=== PATIENT | female | born 1970 | race Caucasian/White ===

== ENCOUNTER → 2018-12-04 13:50 | Outpatient (CLI) | payer OTHER, SELFPAY ==
[2018-12-04 14:56] LABS: Add Manual Diff / Slide Review NO; Basophils Absolute Auto 100 /uL (0-100); Basophils Percent Auto 0.8 % (0-2); Eosinophils Absolute Auto 200 /uL (0-450); Eosinophils Percent Auto 2.8 % (2-4); Hematocrit 39.6 % (36-46); Hemoglobin 13.2 g/dL (12.0-16.0); Lymphocytes Absolute Auto 2300 /uL (1100-4500); Lymphocytes Percent Auto 32.9 % (25-40); Mean Corpuscular HGB Conc 33.4 % (30-36); Mean Corpuscular Hemoglobin 30.4 PG (26-34); Monocytes Absolute Auto 500 /uL (0-900); Monocytes Percent Auto 7.7 % (3-14); Neutrophils Absolute Auto 3900 /uL (1500-7000); Neutrophils Percent Auto 55.8 % (50-75); Platelet Count 389 X10^3/uL (150-400); Red Blood Cell Count 4.35 X10^6/uL (4.0-5.2); Red Cell Distribution Width 13.2 % (11.6-14.8)
[2018-12-04 15:46] LABS: Thyroid Stimulating Hormone 0.17 uIU/mL (0.47-4.68)
[2018-12-04 15:59] LABS: Cholesterol 228 mg/dL (140-199); HDL Cholesterol 43 mg/dL (40-60); LDL Cholesterol Calculated 127 mg/dL (<100); Triglycerides 288 mg/dL (35-150)
== END ==
PROVIDERS: PCP Student in an Organized Health Care Education/Training Program; Visit Provider Student in an Organized Health Care Education/Training Program
DX: E03.9 Hypothyroidism, unspecified (principal); Z13.220 Encounter for screening for lipoid disorders; G47.30 Sleep apnea, unspecified; R53.83 Other fatigue; E55.9 Vitamin D deficiency, unspecified
CPT/HCPCS: 36415; 80061; 82306; 84439; 84443; 84481; 85025

== ENCOUNTER → 2019-06-18 09:04 | Outpatient (CLI) | payer OTHER, SELFPAY ==
--- NOTE | 2019-06-18 09:05 | DI.ECHO.S_ITS ---
[facility] +---------+ : : [address] : : : : [id number] : : : : Phone: [phone]+ Echocardiogram Report + + :Name: CATHERINE OLIVIER Study Date: 06/18/2019 Height: 65 in : :[facility] Weight: 145 lb : : Gender: Female BSA: 1.7 m2 : :: 1970 Age: 48 yrs BP: 152/88 mmHg: :Reason For Study: Chest pain : : Performed By: Qi Yates : :Referring: SUJEY ROBERSON : + + Interpretation Summary Normal sinus rhythm. Normal LV size, wall thickness, wall motion and LV systolic function. EF is 60-65%. Normal chamber sizes. No significant valvular abnormalities. No prior echo available for comparison. Procedure: A two-dimensional transthoracic echocardiogram with color flow and Doppler was performed. The study quality was technically adequate. Comparison is made with the echocardiogram of 09-15-05. The patient was in normal sinus rhythm during the exam. Left Ventricle: The left ventricle is normal in size, wall thickness, and systolic function without any focal wall motion abnormalities. The ejection fraction is estimated to be 60-65%. Diastolic parameters suggest probable normal left ventricular diastolic function and normal filling pressures. Right Ventricle: The right ventricle grossly appears normal in size with probable normal systolic function. Atria: The left atrial size is normal. Right atrial size is normal. The interatrial septum is intact with no evidence for an atrial septal defect. Mitral Valve: The mitral valve is normal in structure and function. There is no mitral regurgitation noted. Aortic Valve: The aortic valve is trileaflet. The aortic valve opens well. No aortic regurgitation is present. Tricuspid Valve: The tricuspid valve is normal in structure and function. There is trace tricuspid regurgitation. The right ventricular systolic pressure is estimated to be at least 26 mmHg based on an estimated right atrial pressure of 3 mm Hg. Pulmonic Valve: The pulmonic valve is normal in structure and function. There is no pulmonic valvular regurgitation. Great Vessels: The aortic root is normal size. The dimensions of the ascending aorta are normal. The aortic arch is normal in size. The IVC is of normal diameter and collapses greater than 50% with a sniff. This suggests a low right atrial pressure of 3 mm Hg. Pericardium/ Pleura There is no pericardial effusion. There is no pleural effusion. MMode/2D Measurements & Calculations LVIDd: 3.7 cm Ao root diam: 3.4 cm LVIDs: 2.3 cm Aortic Jxn: 2.6 cm FS: 37.5 % asc Aorta Diam: 3.3 cm EPSS: 0.53 cm Ao Arch Diam (Prox Trans): 3.0 cm IVSd: 0.97 cm LVPWd: 0.90 cm LV rosenthal. diameter/BSA (cm/m^2): 2.2 LV sys. diameter/BSA (cm/m^2): 1.3 LA dimension: 3.1 cm RA long axis: 4.6 cm LA A2 area: 16.9 cm2 RA area: 15.0 cm2 LA A4 area: 18.6 cm2 RA vol: 41.5 ml LA length (vol): 5.2 cm RA : 24.0 ml/m2 LA vol: 51.5 ml IVC diam: 1.8 cm LA vol index: 29.9 ml/m2 RVDd major: 5.0 cm RVD1 (basal): 3.5 cm RVD2 (mid): 2.9 cm Doppler Measurements & Calculations Ao V2 max: 166.7 cm/sec MV E max patric: 78.5 cm/sec Ao V2 mean: 111.5 cm/sec MV A max patric: 65.3 cm/sec Ao max P.1 mmHg MV E/A: 1.2 Ao mean P.7 mmHg Med Peak E' Patric: 6.5 cm/sec Ao V2 VTI: 34.6 cm E/E' med: 12.2 Lat Peak E' Patric: 8.8 cm/sec E/E' lat: 8.9 E/e' average: 10.5 MV dec time: 0.27 sec MV P1/2t: 80.1 msec TR max patric: 240.7 cm/sec MV P1/2t max patric: 78.1 cm/sec TR max P.2 mmHg MVA(P1/2t): 2.7 cm2 PA V2 max: 88.3 cm/sec PA V2 mean: 56.1 cm/sec PA mean P.5 mmHg PA Accel Time: 0.15 sec Electronically signed by: Osiris Rowe M.D. on Reading Physician:06/19/2019 04:13 AM
== END ==
PROVIDERS: PCP Student in an Organized Health Care Education/Training Program; Visit Provider Student in an Organized Health Care Education/Training Program
DX: R07.9 Chest pain, unspecified (principal); G47.31 Primary central sleep apnea
CPT/HCPCS: 93306

== ENCOUNTER → 2021-07-16 14:33 | Outpatient (ROUT) | payer OTHER, SELFPAY ==
[2021-07-16 14:34] LABS: RBC Urine None Seen (0-5/HPF)
[2021-07-16 14:48] LABS: Appearance Urine UA CLEAR; Bilirubin Urine UA NEGATIVE (NEGATIVE); Color Urine UA YELLOW; Glucose Urine UA NEGATIVE (Negative); Ketones Urine UA TRACE (NEGATIVE); Leukocyte Esterase Urine UA NEGATIVE (NEGATIVE); Nitrite Urine UA NEGATIVE (Negative); Occult Blood Urine UA NEGATIVE (Negative); Protein Urine UA NEGATIVE (Negative); Specific Gravity Urine UA >=1.030 (1.000-1.035); Urobilinogen Urine UA 0.2 E.U./dL (0.2)
[2021-07-16 14:56] LABS: Amorphous Sediment Urine 1+; Bacteria Urine Moderate (10-30); Culture Indicated Urine Specimen Cultured; Mucus Urine 2+ (Negative); Squamous Epithelial Cell Urine 1-5 /HPF (0-5/HPF); WBC Urine 0-1/HPF (0-5/HPF)
== END ==
PROVIDERS: Visit Provider Specialist
DX: N39.0 Urinary tract infection, site not specified (principal)
CPT/HCPCS: 81001; 87086

== ENCOUNTER → 2021-08-26 11:28 | Outpatient (CLI) | payer OTHER, SELFPAY | PROVIDERS: PCP Family Medicine; Referring Provider Internal Medicine; Visit Provider Internal Medicine | DX: Z23 Encounter for immunization (principal) | CPT/HCPCS: 90471; 90686 ==

== ENCOUNTER → 2021-09-06 09:03 | Outpatient (CLI) | payer OTHER, SELFPAY ==
[2021-09-06 09:38] LABS: COVID19 -Nasal RAPID Negative (Negative)
== END ==
PROVIDERS: PCP Family Medicine; Visit Provider Surgery
DX: Z01.812 Encounter for preprocedural laboratory examination (principal); Z20.822 Contact with and (suspected) exposure to COVID-19
CPT/HCPCS: 87635

== ENCOUNTER → 2021-09-07 07:07 | Outpatient (CLI) | payer OTHER, SELFPAY ==
--- NOTE | 2021-09-07 07:08 | DI.CT.S_ITS ---
PROCEDURE: CT PELVIS W CON INDICATIONS: Deep buttock/pelvic pain. Cause unclear.Negative vaginal US TECHNIQUE: After the administration of oral contrast and intravenous contrast, 5 mm thick sections acquired from the iliac crests to the symphysis. 5 mm thick coronal and sagittal reformats were acquired. For radiation dose reduction, the following was used: automated exposure control, adjustment of mA and/or kV according to patient size. COMPARISON: [facility], US, US PELVIC COMPLETE, 07/20/2021, 13:58. [facility], CT, CT PELVIS WITH CONTRAST, 05/29/2019, 16:41. [facility], CT, CT ABD PANCREATIC PROTOCOL, 03/30/2017, 14:53. FINDINGS: Image quality: Excellent. Peritoneum and bowel: Contrast enhanced bowel loops demonstrate normal wall thickness and caliber. No free fluid or air. Genitourinary: There is fluid within the endometrial cavity, which appears somewhat irregular. Ovaries are not visualized. No pathological free-fluid in the cul-de-sac. Bladder wall thickness is normal. Nodes and vessels: No iliac, pelvic, or inguinal adenopathy. Iliac vessels demonstrate normal size and enhancement. Bones: No suspicious bony lesions. Miscellaneous: No inguinal hernias. IMPRESSION: 1. No acute inflammatory process is identified in pelvis. 2. No pelvic lymphadenopathy. 3. Fluid in the endometrial cavity, which appears slightly irregular. Please correlate with findings on gynecological ultrasound. Dictated by: Jammie Madrid M.D. on 09/07/2021 at 8:45 Approved by: Jammie Madrid M.D. on 09/07/2021 at 8:53
== END ==
PROVIDERS: PCP Family Medicine; Referring Provider Specialist; Visit Provider Specialist
DX: R10.2 Pelvic and perineal pain (principal)
CPT/HCPCS: 72193; Q9967

== ENCOUNTER → 2021-09-21 07:06 | Outpatient (CLI) | payer OTHER, SELFPAY ==
--- NOTE | 2021-09-21 07:07 | DI.US.S_ITS ---
PROCEDURE: US PELVIC COMPLETE INDICATIONS: Pelvic pain TECHNIQUE: Real-time scanning was performed of the pelvic organs, with image documentation. Additional endovaginal scanning was necessary due to incomplete visualization of the adnexal and endometrial structures by transabdominal scanning. COMPARISON: [facility], US, US PELVIC COMPLETE, 07/20/2021, 13:58. FINDINGS: Uterus: Surgically absent. Hypoechoic lesions are seen in the cervix, compatible with nabothian cysts. Ovaries: Not visualized. Other: No pathologic free abdominal or pelvic fluid. IMPRESSION: No significant abnormality. Dictated by: Juan Alberto Hull M.D. on 09/21/2021 at 8:49 Approved by: Juan Alberto Hull M.D. on 09/21/2021 at 8:51
== END ==
PROVIDERS: PCP Family Medicine; Referring Provider Obstetrics & Gynecology; Visit Provider Obstetrics & Gynecology
DX: R10.2 Pelvic and perineal pain (principal); N88.9 Noninflammatory disorder of cervix uteri, unspecified; Z90.710 Acquired absence of both cervix and uterus
CPT/HCPCS: 76830; 76856

== ENCOUNTER → 2021-10-08 15:34 | Outpatient (CLI) | payer OTHER, SELFPAY ==
[2021-10-08] MEDS: COVID-19 VACC #3, MRNA(MOD) 50 MCG/0.25 ML VIAL IM (15:42)
== END ==
PROVIDERS: PCP Family Medicine; Visit Provider Internal Medicine
DX: Z23 Encounter for immunization (principal)
CPT/HCPCS: 0013A; 91301

== ENCOUNTER → 2021-12-06 08:37 | Outpatient (CLI) | payer OTHER, SELFPAY ==
[2021-12-06 09:15] LABS: COVID19 -Nasal RAPID Negative (Negative)
== END ==
PROVIDERS: PCP Family Medicine; Referring Provider Surgery; Visit Provider Surgery
DX: Z20.822 Contact with and (suspected) exposure to COVID-19 (principal)
CPT/HCPCS: 87635

== ENCOUNTER → 2021-12-08 08:37 | Outpatient (CLI) | payer OTHER, SELFPAY ==
[2021-12-08 09:08] LABS: COVID19 -Nasal RAPID Negative (Negative)
== END ==
PROVIDERS: PCP Family Medicine; Referring Provider Surgery; Visit Provider Surgery
DX: Z01.812 Encounter for preprocedural laboratory examination (principal); Z20.822 Contact with and (suspected) exposure to COVID-19
CPT/HCPCS: 87635

== ENCOUNTER → 2022-01-17 12:29 | Outpatient (CLI) | payer OTHER, SELFPAY ==
[2022-01-17 15:32] LABS: COVID19 -Nasal RAPID Negative (Negative)
== END ==
PROVIDERS: PCP Family Medicine; Referring Provider Surgery; Visit Provider Surgery
DX: Z01.812 Encounter for preprocedural laboratory examination (principal); Z20.822 Contact with and (suspected) exposure to COVID-19
CPT/HCPCS: 87635

== ENCOUNTER → 2022-02-21 11:00 | Outpatient (CLI) | payer OTHER, SELFPAY ==
[2022-02-21 13:51] LABS: COVID19 -Nasal RAPID Negative (Negative)
== END ==
PROVIDERS: PCP Family Medicine; Visit Provider Surgery
DX: Z01.812 Encounter for preprocedural laboratory examination (principal); Z20.822 Contact with and (suspected) exposure to COVID-19
CPT/HCPCS: 87635

== ENCOUNTER → 2022-03-16 10:03 | Outpatient (CLI) | payer OTHER, SELFPAY ==
[2022-03-16 10:44] LABS: COVID19 -Nasal RAPID Negative (Negative)
== END ==
PROVIDERS: PCP Family Medicine; Visit Provider Surgery
DX: Z20.822 Contact with and (suspected) exposure to COVID-19 (principal)
CPT/HCPCS: 87635

== ENCOUNTER → 2022-03-30 08:40 | Outpatient (CLI) | payer OTHER, SELFPAY ==
[2022-03-30 09:08] LABS: COVID19 -Nasal RAPID Negative (Negative)
== END ==
PROVIDERS: PCP Family Medicine; Visit Provider Surgery
DX: Z20.822 Contact with and (suspected) exposure to COVID-19 (principal)
CPT/HCPCS: 87635

== ENCOUNTER → 2022-05-16 11:42 | Outpatient (CLI) | payer OTHER, SELFPAY ==
[2022-05-16 13:51] LABS: COVID19 -Nasal RAPID Negative (Negative)
== END ==
PROVIDERS: PCP Family Medicine; Visit Provider Surgery
DX: Z20.822 Contact with and (suspected) exposure to COVID-19 (principal); Z01.812 Encounter for preprocedural laboratory examination
CPT/HCPCS: 87635; C9803

== ENCOUNTER 2022-05-17 14:42 | Day surgery (SDC) | payer OTHER, SELFPAY ==
[2022-05-10 15:14] VITALS: BMI 27.8
--- NOTE | 2022-05-17 | PATH_ITS ---
[facility] Accession Number: [id number] . 01 Material submitted: . perianal area - RIGHT MADHAVI-ANAL SKIN . 01 Diagnosis: Right Perianal, Biopsy: Epithelial hyperplasia with hyperkeratosis and mild underlying fibrosis; see note. . Note: Additional step sections are examined. 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 A PAS fungal stain is negative for fungal hyphae. There is no evidence of malignancy identified in sections examined. Clinical correlation is suggested. V 05/24/2022 1603 Local . 01 Electronically signed: . Keon Elaine MD, Dermatopathologist NPI- [id number] . 01 Gross description: . RIGHT MADHAVI-ANAL SKIN: Received in formalin is 1 fragment of hawkins soft tissue measuring 0.3 x 0.3 x 0.5 cm. Tissue is inked. Specimen is submitted in its entirety in 1 cassette. /ARIEL 05/18/2022 2222 Local . 01 Pathologist provided ICD-10: L28.0 . 01 CPT . 143328, [id number] Specimen Comment: A courtesy copy of this report has been sent to [phone] Performed at: 01 [facility] [address] [place] [address] [address] [facility], [place], [place] [id number] MD Reinaldo Haskins MD Phone: [phone]
[2022-05-17 14:50] VITALS: BP 133/83; PULSE 82; RESP 16; TEMP 36.2; O2SAT 96
[2022-05-17 14:58] VITALS: BMI 27.8
[2022-05-17] MEDS: LACTATED RINGERS 1,000 ML 84 ML IV (15:14)
--- NOTE | 2022-05-17 15:59 | PM.PREOP ---
Pre-operative Note COVID-19 COVID-19 status: Negative Result date/Date tested (Pos, Neg/Pending): 05/16/22 Interval Note History & Physical reviewed/Exam performed by Physician: Yes Changes to H&P: No ASA Class (for procedural sedation): II
[2022-05-17] MEDS: CEFAZOLIN 2 GM/20 ML SYRINGE IV (16:18)
[2022-05-17] MEDS: BUPIVACAINE LIPOSOME 266 MG/20 ML VIAL INJ (16:42)
--- NOTE | 2022-05-17 16:43 | PM.OP.1 ---
Operative Date/Time/Diagnoses Date of procedure: 05/17/22 Time of procedure: 16:44 Pre-op diagnosis: Proctalgia Post-op diagnosis: same Procedure & Clinicians Procedure: Examination under anesthesia and biopsy of right perianal skin Same procedure as scheduled: Yes Surgeon: Salvador Escobar Anesthesia Type: General Operative Notes Procedure in detail: The patient was brought to the operating and placed on the table in supine position. General anesthesia was induced. Patient was positioned in lithotomy and the perineum was prepped and draped in the usual fashion. A time-out was performed. First, a digital rectal exam was performed with lubricant. The sphincter tone was noted to be rather high. Initially 1 digit was used and after relaxation of the sphincter muscle two well lubricated digits were able to be inserted. Next, the L Bright retractor was used to examine the distal rectum and perineum. There was a small posterior fissure which appeared to be healing. The slightly hypertrophied skin in the right lateral perianal location was examined. There was no obvious skin lesion but the skin was just slightly redundant hypertrophied. A number 3 punch biopsy was taken. A 4-0 Monocryl was used to close the skin and achieve hemostasis. Then a drop of Dermabond was applied over the wound. Patient was awakened brought to recovery room. EBL: 5 mL Specimen: Right perianal skin Post-operative Condition: stable Disposition: PACU
--- NOTE | 2022-05-17 16:44 | SUR.OPER ---
Lithotomy on padded OR bed, head on pillow, arms secured on padded arm boards at <90 degrees abduction. Legs secured in padded yellow fins stirrups.
[2022-05-17 16:47] VITALS: BP 95/65; PULSE 80; RESP 14; TEMP 36.4; O2SAT 98
[2022-05-17 16:52] VITALS: BP 104/60; PULSE 73; RESP 16; O2SAT 95
[2022-05-17 16:57] VITALS: BP 110/66; PULSE 81; RESP 18; O2SAT 94
[2022-05-17 17:02] VITALS: BP 125/78; PULSE 90; RESP 18; TEMP 36.5; O2SAT 93
[2022-05-17 17:07] VITALS: BP 134/76; PULSE 83; RESP 16; TEMP 36.5; O2SAT 94
== END 2022-05-17 17:31 | disposition home or self-care (01) ==
PROVIDERS: PCP Family Medicine; Referring Provider Surgery; Visit Provider Surgery
PROC: (CPT 45990; principal; 2022-05-17 15:45)
DX: K62.89 Other specified diseases of anus and rectum (principal); K60.2 Anal fissure, unspecified; G47.31 Primary central sleep apnea; E03.9 Hypothyroidism, unspecified; I10 Essential (primary) hypertension; E78.5 Hyperlipidemia, unspecified
CPT/HCPCS: 11104; C9290; J0690; J1100; J1885; J2250; J2405; J2704; J3010

== ENCOUNTER → 2022-09-13 15:53 | Outpatient (CLI) | payer OTHER, SELFPAY | PROVIDERS: PCP Family Medicine; Referring Provider Internal Medicine; Visit Provider Internal Medicine | DX: Z23 Encounter for immunization (principal) | CPT/HCPCS: 90471; 90686 ==

== ENCOUNTER → 2022-10-26 08:47 | Outpatient (CLI) | payer OTHER, SELFPAY ==
[2022-10-26 10:50] LABS: COVID19 -Nasal RAPID Negative (Negative)
== END ==
PROVIDERS: PCP Family Medicine; Visit Provider Surgery
DX: Z20.822 Contact with and (suspected) exposure to COVID-19 (principal); Z01.812 Encounter for preprocedural laboratory examination
CPT/HCPCS: 87635

== ENCOUNTER → 2023-02-07 08:37 | Outpatient (CLI) | payer OTHER, SELFPAY ==
[2023-02-07 09:04] LABS: COVID19 -Nasal RAPID Negative (Negative)
== END ==
PROVIDERS: PCP Family Medicine; Visit Provider Surgery
DX: Z20.822 Contact with and (suspected) exposure to COVID-19 (principal)
CPT/HCPCS: 87635

== ENCOUNTER → 2023-02-09 08:41 | Outpatient (CLI) | payer OTHER, SELFPAY ==
[2023-02-09 09:16] LABS: COVID19 -Nasal RAPID Negative (Negative)
== END ==
PROVIDERS: PCP Family Medicine; Visit Provider Surgery
DX: Z20.822 Contact with and (suspected) exposure to COVID-19 (principal)
CPT/HCPCS: 87635

== ENCOUNTER → 2023-09-15 | Outpatient (CLI) | payer OTHER, SELFPAY | PROVIDERS: PCP Family Medicine; Referring Provider Family Medicine; Visit Provider Family Medicine | DX: Z23 Encounter for immunization (principal) | CPT/HCPCS: 90471; 90686 ==

== ENCOUNTER → 2024-04-10 12:55 | Outpatient (CLI) | payer OTHER, SELFPAY ==
[2024-04-10 13:34] LABS: COVID19 -Nasal RAPID Negative (Negative)
== END ==
PROVIDERS: PCP Family Medicine; Visit Provider Surgery
DX: Z20.822 Contact with and (suspected) exposure to COVID-19 (principal)
CPT/HCPCS: 87635

== ENCOUNTER → 2024-08-16 14:52 | Outpatient (CLI) | payer OTHER, SELFPAY ==
[2024-08-16 15:29] LABS: COVID19 -Nasal RAPID Negative (Negative)
== END ==
PROVIDERS: PCP Family Medicine; Visit Provider Surgery
DX: Z20.822 Contact with and (suspected) exposure to COVID-19 (principal)
CPT/HCPCS: 87635

== ENCOUNTER → 2024-10-16 11:27 | Outpatient (CLI) | payer OTHER, SELFPAY | PROVIDERS: PCP Family Medicine; Referring Provider Internal Medicine; Visit Provider Internal Medicine | DX: Z23 Encounter for immunization (principal) | CPT/HCPCS: 90471; 90656 ==

== ENCOUNTER → 2025-03-13 11:37 | Outpatient (CLI) | payer BC, SELFPAY ==
--- NOTE | 2025-03-13 11:41 | EKG_ITS ---
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
== END ==
PROVIDERS: PCP Family Medicine; Referring Provider Surgery; Visit Provider Surgery
DX: I07.9 Rheumatic tricuspid valve disease, unspecified (principal); I10 Essential (primary) hypertension
CPT/HCPCS: 93005; 93010

== ENCOUNTER → 2025-08-19 16:59 | Outpatient (CLI) | payer BC, SELFPAY ==
[2025-08-19 18:23] LABS: HEMOLYSIS < 15 (0-50); Iron 63 ug/dL (37-170)
[2025-08-19 18:34] LABS: Percent Iron Saturation 22 % (15-50); Total Iron Binding Capacity 289 ug/dL (265-497); Transferrin 229 mg/dL (206-381)
[2025-08-19 19:02] LABS: Ferritin 36 ng/mL (11-264)
== END ==
PROVIDERS: PCP Internal Medicine; Referring Provider Pediatrics; Visit Provider Pediatrics
DX: G47.19 Other hypersomnia (principal)
CPT/HCPCS: 36415; 82728; 83540; 83550; 86140